=== PATIENT | female | born 1955 ===

== ENCOUNTER 2024-04-06 08:24 | Day surgery (SDC) | payer MEDICARE ==
[~2024-04-06] VITALS: Ht 152.4 cm; Wt 77.7 kg
[~2024-04-06 08:24] MED LIST: LR 1,000 ML IV SCH; Ondansetron 4 MG/2 ML VIAL ONE; Rocuronium 50 MG/5 ML Multi-Dose VIAL ONE; fentaNYL 50 MCG/ML 5 ML VIAL ONE
[2024-04-06] MEDS ORDERED: Indocyanine Green 12.5 MG in Water For Injection,Sterile 2.5 ML IV SCH (08:30)
[2024-04-06 09:21] VITALS: BP 124/63; PULSE 58; TEMP 97.2
[2024-04-06] MEDS ORDERED: HCTZ 25MG TAB25 MG PO (09:26)
[2024-04-06] MEDS ORDERED: LOPRESSOR 550 MG/TAB PO (09:27)
[2024-04-06] MEDS ORDERED: LOTENSIN20 MG PO (09:28)
[2024-04-06] MEDS ORDERED: ASPIRIN E.C. 8181 MG PO (09:29)
--- NOTE | 2024-04-06 09:31 | NUR ---
Patient admitted to [facility] [place] [facility]. Admission assessments completed. Consent signed. Rosemary Ochoa LOAD BLOCKER in to speak with patient. 18G IV inserted into LFA, LR infusing without difficulty. Medications given, see EMAR. Medications, allergies, and pharmacy confirmed. brought to bedside. Oriented to room and call light. Call light within reach.
[2024-04-06] MEDS ORDERED: Clindamycin 0 ML IV ONE (10:18)
[2024-04-06] MEDS ORDERED: Ondansetron 4 MG/2 ML VIAL ONE (11:22)
[2024-04-06] MEDS ORDERED: fentaNYL 50 MCG/ML 5 ML VIAL ONE (11:22)
[2024-04-06] MEDS ORDERED: Lidocaine PF 2% (20 MG/ML) 5 ML VIAL ONE (11:22)
[2024-04-06] MEDS ORDERED: Rocuronium 50 MG/5 ML Multi-Dose VIAL ONE (11:22)
[2024-04-06] MEDS ORDERED: HYDROmorphone 1 MG/1 ML SYRINGE [PACU/SDC ONLY] IV PRN (12:00)
[2024-04-06] MEDS ORDERED: Ondansetron 4 MG/2 ML VIAL IV PRN ×2 (12:00→12:45)
[2024-04-06] MEDS ORDERED: fentaNYL 50 MCG/ML 1 ML SYRINGE/VIAL [PACU/SDC ONLY] IV PRN (12:00)
[2024-04-06] MEDS ORDERED: Topical Skin Adhesive 1 EACH (1 ML) TOP ONE (12:15)
[2024-04-06] MEDS ORDERED: NORCO 325 MG-51 TAB PO (12:38)
[2024-04-06] MEDS ORDERED: Ibuprofen 600 MG TAB PO PRN (12:45)
[2024-04-06] MEDS ORDERED: Acetaminophen 325 MG TAB PO PRN (12:45)
[2024-04-06 13:20] VITALS: BP 131/61; PULSE 50; TEMP 79.3
--- NOTE | 2024-04-06 13:26 | NUR ---
1320: PT TO BAY 1 VIA COT FROM PACU. ALERT AND ORIENTED. REPORT RECEIVED FROM ALISTAIR DEJESUS. 4 ABD INCISIONS C/D/I AND CLOSED WITH SKIN GLUE. PT DENIES NAUSEA AND STATED PAIN IS TOLERABLE. REQUESTING WATER BUT DECLINING FOOD AT THIS TIME. RESTING IN COT. CALL LIGHT IN REACH. , CLAUDETTE, AT BEDSIDE.
[2024-04-06 13:35] VITALS: BP 124/64; PULSE 52
--- NOTE | 2024-04-06 13:38 | NUR ---
1335: PT ALERT AND ORIENTED. VSS. STATED PAIN IS TOLERABLE AND DENIES NEED FOR PAIN MEDICATIONS AT THIS TIME. TOLERATING WATER AND DENIES NAUSEA. DOES NOT WISH TO ADVANCE DIET AT THIS TIME. RESTING IN COT. CALL LIGHT IN REACH. , CLAUDETTE, AT BEDSIDE.
[2024-04-06 13:50] VITALS: BP 111/61; PULSE 57
--- NOTE | 2024-04-06 13:54 | NUR ---
1350: PT ALERT AND ORIENTED. VSS. PT HAS NO C/O PAIN AT THIS TIME. DENIES NAUSEA AND REQUESTING A GRAHM CRACKER. NO FURTHER NEEDS NOTED AT THIS TIME. RESTING IN COT. CALL LIGHT IN REACH. , CLAUDETTE, AT BEDSIDE.
--- NOTE | 2024-04-06 14:27 | NUR ---
1405: DISCHARGE EDUCATION COMPLETED AT THIS TIME. QUESTIONS WELCOMED AND ANSWERED. PT AND STATED UNDERSTANDING OF DISCHARGE EDUCATION. IV DC'D AT THIS TIME. PT EDUCATED THAT NEXT DOSE OF IBUPROFEN IS DUE AT 1830. PT STATED UNDERSTANDING. DISCHARGE PAPERWORK GIVEN TO PT. PT DENIES ASSISTANCE WITH DRESSING. 1410: PT C/O NAUSEA AFTER DRESSING. PT SAT ON SIDE OF BED AND SIPPED WATER. PT STATED SHE THEN FELT "BETTER." 1415: PT OFF UNIT AT THIS TIME. PT DISCHARGED TO HOME VIA PRIVATE VEHICLE WITH , CLAUDETTE.
== END 2024-04-06 14:15 | disposition home or self-care (01) ==
LOC: SDCO 08:24
DX: K80.10 Calculus of gallbladder with chronic cholecystitis without obstruction (principal); I10 Essential (primary) hypertension; Z79.899 Other long term (current) drug therapy
CPT/HCPCS: J0690; J0737; J1171; J2405; J2704; J3010; J7120